=== PATIENT | male | born 1990 | race Two or more races ===

== ENCOUNTER 2023-08-11 19:27 | Inpatient (IN) | payer OTHER ==
[~2023-08-11] VITALS: Ht 172.7 cm; Wt 126.1 kg
[2023-08-11] MEDS ORDERED: hydrALAZINE HCL IV 20 MG VIAL ONE (20:39)
[2023-08-11] MEDS ORDERED: CLONIDINE HCL 0.1 MG TABLET PO ONE (21:00)
[2023-08-11] MEDS ORDERED: hydrALAZINE HCL IV 20 MG VIAL IV ONE (21:00)
[2023-08-11 21:01] LABS: BASOPHILS # (AUTO) 0.1 K/uL (0.0-0.2); BASOPHILS % (AUTO) 0.6 % (0.0-2.0); EOSINOPHILS % (AUTO) 0.1 % (0.0-6.0); HEMATOCRIT 30 % (39-51); HEMOGLOBIN 10.2 g/dL (13.5-17.5); LYMPHOCYTES # (AUTO) 2.1 K/uL (0.8-4.8); LYMPHOCYTES % (AUTO) 13.4 % (20.0-44.0); MEAN CORPUSCULAR HEMOGLOBIN 26 PG (26.0-33.0); MEAN CORPUSCULAR HGB CONC 34 g/dl (31.0-36.0); MEAN CORPUSCULAR VOLUME 76 fL (80-96); MONOCYTES # (AUTO) 0.8 K/uL (0.1-1.30); MONOCYTES % (AUTO) 4.9 % (2.0-12.0); PLATELET COUNT (AUTO) 262 K/uL (150-450); RED BLOOD CELL COUNT(AUTO) 3.99 MIL/uL (4.5-6.0); RED CELL DISTRIBUTION WIDTH 21.2 % (11.5-15.0)
[2023-08-11 21:25] LABS: CARBON DIOXIDE 24 mmol/L (21-32); CHLORIDE 101 mmol/L (98-107); CREATININE 3.6 mg/dL (0.6-1.3); GLUCOSE 98 mg/dL (74-106); SODIUM SERUM 137 mmol/L (136-145); UREA NITROGEN, BLOOD 32 mg/dL (7-18)
[2023-08-11] MEDS ORDERED: LABETALOL HCL IV 100MG VIAL ONE (21:30)
[2023-08-11] MEDS ORDERED: LABETALOL 20 MG/4 ML VIAL IV ONE ×3 (21:30→23:30)
[2023-08-11] MEDS ORDERED: LORAZEPAM INJ 2 MG/ML VIAL IV ONE (23:30)
[2023-08-11] MEDS ORDERED: LORAZEPAM INJ 2 MG/ML VIAL ONE (23:54)
[2023-08-12] VITALS (44 sets, daily range): BP systolic 115–203; BP diastolic 65–122; TEMP 97.6–99.3; O2SAT 96–100
[2023-08-12] MEDS ORDERED: ONDANSETRON HCL/PF 4 MG/2 ML VIAL IVP PRN (00:30)
[2023-08-12] MEDS ORDERED: MAG HYDROX/AL HYDROX/SIMETH 30 ML UDC PO PRN (00:30)
[2023-08-12] MEDS ORDERED: ACETAMINOPHEN 325 MG TABLET PO PRN (00:30)
[2023-08-12] MEDS ORDERED: ZOLPIDEM TARTRATE 5 MG TABLET PO PRN (00:30)
[2023-08-12] MEDS ORDERED: MAGNESIUM HYDROXIDE 30 ML UDC PO PRN (00:30)
[2023-08-12] MEDS ORDERED: Z GUARD REMEDY 4 OZ OINT TP PRN (00:30)
[2023-08-12] MEDS ORDERED: hydrALAZINE HCL IV 20 MG VIAL IV PRN (00:30)
[2023-08-12] MEDS: hydrALAZINE HCL IV 20 MG VIAL IV PRN ×2 (02:42→08:39)
[2023-08-12] MEDS: IV 1/2NS 1000 ML 1,000 ML IV PRN ×2 (02:43→18:19)
[2023-08-12] MEDS ORDERED: hydrALAZINE HCL IV 20 MG VIAL IV ONE (05:00)
[2023-08-12] MEDS ORDERED: ONDANSETRON HCL/PF 4 MG/2 ML VIAL IV PRN (08:30)
[2023-08-12] MEDS ORDERED: LOSA50TA39 PO (08:55)
[2023-08-12] MEDS ORDERED: LOSARTAN/HCTZ 50-12.5MG/ 1 EA TABLET PO SCH (09:00)
[2023-08-12] MEDS ORDERED: NICARDIPINE HCL 50 MG in IV NS 0.9% 230 ML IV PRN (12:00)
[2023-08-12] MEDS ORDERED: NIFEdipine XL (30MG) 30 MG TAB PO SCH (12:00)
[2023-08-12] MEDS: NICARDIPINE IN NACL, ISO-OSM 200 ML IV PRN ×3 (12:26→18:13)
[2023-08-12] MEDS: LABETALOL HCL (100MG) 100 MG TABLET PO SCH ×2 (16:54→21:30)
[2023-08-12] MEDS: NIFEdipine XL (30MG) 30 MG TAB PO SCH ×2 (16:54→17:00)
[2023-08-12] MEDS ORDERED: MINOXIDIL (2.5MG) 2.5 MG TABLET PO SCH (17:00)
[2023-08-12] MEDS ORDERED: NICARDIPINE IN NACL, ISO-OSM 200 ML IV PRN (19:00)
[2023-08-12] MEDS ORDERED: POTASSIUM CHLORIDE 20 MEQ TAB.PRT.SR PO ONE (19:00)
[2023-08-13] VITALS (56 sets, daily range): BP systolic 102–177; BP diastolic 56–124; TEMP 98–99.8; O2SAT 95–100
[2023-08-13 04:48] LABS: BASOPHILS % (AUTO) 0.3 % (0.0-2.0); EOSINOPHILS # (AUTO) 0.1 K/uL (0.0-0.7); EOSINOPHILS % (AUTO) 0.3 % (0.0-6.0); HEMATOCRIT 28 % (39-51); HEMOGLOBIN 9.7 g/dL (13.5-17.5); LYMPHOCYTES # (AUTO) 2.4 K/uL (0.8-4.8); LYMPHOCYTES % (AUTO) 14.3 % (20.0-44.0); MEAN CORPUSCULAR HEMOGLOBIN 26 PG (26.0-33.0); MEAN CORPUSCULAR HGB CONC 35 g/dl (31.0-36.0); MEAN CORPUSCULAR VOLUME 76 fL (80-96); MONOCYTES # (AUTO) 1.2 K/uL (0.1-1.30); MONOCYTES % (AUTO) 6.9 % (2.0-12.0); NEUTROPHILS # (AUTO) 13.4 K/uL (1.8-8.9); NEUTROPHILS % (AUTO) 78.2 % (43.0-81.0); PLATELET COUNT (AUTO) 254 K/uL (150-450); RED BLOOD CELL COUNT(AUTO) 3.69 MIL/uL (4.5-6.0); RED CELL DISTRIBUTION WIDTH 21.5 % (11.5-15.0); WHITE BLOOD COUNT (AUTO) 17.1 K/uL (4.3-11.0)
[2023-08-13 05:18] LABS: ALBUMIN 3.4 g/dL (3.4-5.0); BILIRUBIN,TOTAL 0.9 mg/dL (0.2-1.0); CALCIUM, SERUM 8.8 mg/dL (8.5-10.1); CREATININE 3.5 mg/dL (0.6-1.3); MAGNESIUM 2.2 mg/dL (1.8-2.4); PHOSPHORUS 4.5 mg/dL (2.5-4.9); POTASSIUM 3.1 mmol/L (3.5-5.1); TOTAL PROTEIN, SERUM 7.4 g/dL (6.4-8.2)
[2023-08-13 05:28] LABS: THYROID STIMULATING HORMONE 0.885 uIU/mL (0.358-3.74)
[2023-08-13] MEDS: IV 1/2NS 1000 ML 1,000 ML IV PRN ×2 (08:11→22:19)
[2023-08-13] MEDS: LABETALOL HCL (100MG) 100 MG TABLET PO SCH ×3 (08:12→21:34)
[2023-08-13] MEDS: NIFEdipine XL (30MG) 30 MG TAB PO SCH ×2 (08:12→16:04)
[2023-08-13] MEDS ORDERED: POTASSIUM CHLORIDE 20 MEQ TAB.PRT.SR PO ONE (08:30)
[2023-08-13] MEDS: hydrALAZINE HCL IV 20 MG VIAL IV PRN (14:31)
[2023-08-13] MEDS ORDERED: LABETALOL HCL IV 100MG VIAL IV PRN (18:00)
[2023-08-13] MEDS ORDERED: CLONIDINE HCL 0.1 MG TABLET PO PRN (18:00)
[2023-08-14] VITALS (21 sets, daily range): BP systolic 134–190; BP diastolic 78–115; TEMP 98.5–99.1; O2SAT 95–100
[2023-08-14 08:09] LABS: CORTISOL SERUM 10.4 ug/dL (6.2-19.4); PTH, INTACT 71 pg/mL (15-65)
[2023-08-14] MEDS: NIFEdipine XL (30MG) 30 MG TAB PO SCH ×2 (08:35→16:17)
[2023-08-14] MEDS: LABETALOL HCL (100MG) 100 MG TABLET PO SCH ×2 (08:36→21:39)
[2023-08-14] MEDS: IV 1/2NS 1000 ML 1,000 ML IV PRN (09:32)
[2023-08-14 13:13] LABS: *SPE A/G RATIO 1.2 (0.7-1.7); *SPE ALBUMIN 3.7 g/dL (2.9-4.4); *SPE ALPHA-1-GLOBULIN 0.3 g/dL (0.0-0.4); *SPE ALPHA-2-GLOBULIN 0.6 g/dL (0.4-1.0); *SPE GLOBULIN, TOTAL 3.2 g/dL (2.2-3.9); *SPE M-SPIKE Not Observed g/dL (Not Observed); *SPE PROTEIN TOTAL 6.9 g/dL (6.0-8.5); *SPEGAMMA GLOBULIN 1.4 g/dL (0.4-1.8)
[2023-08-15] VITALS (8 sets, daily range): BP systolic 67–156; BP diastolic 47–108; TEMP 97.6–98.8; O2SAT 97–100
[2023-08-15 08:03] LABS: BASOPHILS # (AUTO) 0.1 K/uL (0.0-0.2); BASOPHILS % (AUTO) 0.9 % (0.0-2.0); EOSINOPHILS # (AUTO) 0.2 K/uL (0.0-0.7); EOSINOPHILS % (AUTO) 2.1 % (0.0-6.0); HEMATOCRIT 30 % (39-51); HEMOGLOBIN 10.3 g/dL (13.5-17.5); LYMPHOCYTES # (AUTO) 2.4 K/uL (0.8-4.8); LYMPHOCYTES % (AUTO) 23.4 % (20.0-44.0); MEAN CORPUSCULAR HEMOGLOBIN 26 PG (26.0-33.0); MEAN CORPUSCULAR HGB CONC 34 g/dl (31.0-36.0); MEAN CORPUSCULAR VOLUME 78 fL (80-96); MONOCYTES # (AUTO) 0.7 K/uL (0.1-1.30); MONOCYTES % (AUTO) 7.1 % (2.0-12.0); NEUTROPHILS # (AUTO) 6.8 K/uL (1.8-8.9); NEUTROPHILS % (AUTO) 66.5 % (43.0-81.0); PLATELET COUNT (AUTO) 299 K/uL (150-450); RED BLOOD CELL COUNT(AUTO) 3.92 MIL/uL (4.5-6.0); RED CELL DISTRIBUTION WIDTH 21.2 % (11.5-15.0); WHITE BLOOD COUNT (AUTO) 10.3 K/uL (4.3-11.0)
[2023-08-15 08:30] LABS: CALCIUM, SERUM 9.1 mg/dL (8.5-10.1); CREATININE 3.7 mg/dL (0.6-1.3); MAGNESIUM 2.4 mg/dL (1.8-2.4); PHOSPHORUS 4.3 mg/dL (2.5-4.9); POTASSIUM 3.4 mmol/L (3.5-5.1)
[2023-08-15] MEDS: NIFEdipine XL (30MG) 30 MG TAB PO SCH ×2 (09:04→18:54)
[2023-08-15] MEDS: LABETALOL HCL (100MG) 100 MG TABLET PO SCH ×2 (09:04→18:24)
[2023-08-15] MEDS ORDERED: POTASSIUM CHLORIDE 20 MEQ TAB.PRT.SR PO ONE (10:00)
[2023-08-15] MEDS ORDERED: LABETALOL HCL (100MG) 100 MG TABLET PO SCH (13:00)
[2023-08-15] MEDS ORDERED: NIFE-35 PO (14:15)
[2023-08-15] MEDS ORDERED: LABE100T15 PO (14:15)
[2023-08-15] MEDS ORDERED: MINO2.5T PO (14:15)
[2023-08-16] VITALS: BP 136/91; TEMP 98.4; O2SAT 100
[2023-08-16 06:27] LABS: BASOPHILS # (AUTO) 0.1 K/uL (0.0-0.2); BASOPHILS % (AUTO) 0.8 % (0.0-2.0); EOSINOPHILS # (AUTO) 0.2 K/uL (0.0-0.7); EOSINOPHILS % (AUTO) 1.4 % (0.0-6.0); HEMATOCRIT 29 % (39-51); HEMOGLOBIN 9.8 g/dL (13.5-17.5); LYMPHOCYTES # (AUTO) 2.4 K/uL (0.8-4.8); LYMPHOCYTES % (AUTO) 19.7 % (20.0-44.0); MEAN CORPUSCULAR HEMOGLOBIN 26 PG (26.0-33.0); MEAN CORPUSCULAR HGB CONC 34 g/dl (31.0-36.0); MEAN CORPUSCULAR VOLUME 76 fL (80-96); MONOCYTES # (AUTO) 0.9 K/uL (0.1-1.30); MONOCYTES % (AUTO) 7.3 % (2.0-12.0); NEUTROPHILS # (AUTO) 8.7 K/uL (1.8-8.9); NEUTROPHILS % (AUTO) 70.8 % (43.0-81.0); PLATELET COUNT (AUTO) 293 K/uL (150-450); RED BLOOD CELL COUNT(AUTO) 3.78 MIL/uL (4.5-6.0); RED CELL DISTRIBUTION WIDTH 20.8 % (11.5-15.0); WHITE BLOOD COUNT (AUTO) 12.3 K/uL (4.3-11.0)
[2023-08-16 07:01] LABS: ALBUMIN 3.4 g/dL (3.4-5.0); BILIRUBIN,TOTAL 0.8 mg/dL (0.2-1.0); CREATININE 3.6 mg/dL (0.6-1.3); MAGNESIUM 2.4 mg/dL (1.8-2.4); PHOSPHORUS 4.7 mg/dL (2.5-4.9); POTASSIUM 3.5 mmol/L (3.5-5.1); TOTAL PROTEIN, SERUM 7.7 g/dL (6.4-8.2)
[2023-08-16 08:00] VITALS: BP 154/105; TEMP 98.6; O2SAT 99
[2023-08-16 09:20] VITALS: BP 149/112
[2023-08-16 09:22] VITALS: BP_SYST 151; BP_SYST 168; BP_DIAS 100
[2023-08-16] MEDS: LABETALOL HCL (100MG) 100 MG TABLET PO SCH (09:22)
[2023-08-16 11:45] VITALS: BP 136/104
[2023-08-16] MEDS: NIFEdipine XL (30MG) 30 MG TAB PO SCH (11:45)
[2023-08-16] MEDS ORDERED: LABE100T5 PO (12:47)
[2023-08-17 01:06] LABS: ALDOSTERONE,LCMS 14 ng/dL (.)
== END 2023-08-16 13:50 | disposition home or self-care (01) | DRG 199 ==
LOC: ER 19:29 → TELE 08-12 00:45 → ICU 08-12 13:45 → TELE 08-14 12:56
PROVIDERS: ADMIT Nurse Practitioner Acute Care; ATTEND Nurse Practitioner Acute Care
PROC: 05H533Z Insertion of Infusion Device into Right Subclavian Vein, Percutaneous Approach (ICD-10-PCS; principal; 2023-08-12)
PROC: B546ZZA Ultrasonography of Right Subclavian Vein, Guidance (ICD-10-PCS; 2023-08-12)
DX: I16.0 Hypertensive urgency (principal); I21.A1 Myocardial infarction type 2; N17.9 Acute kidney failure, unspecified; E46 Unspecified protein-calorie malnutrition; E83.9 Disorder of mineral metabolism, unspecified; D64.9 Anemia, unspecified; D72.829 Elevated white blood cell count, unspecified; E87.6 Hypokalemia; I12.9 Hypertensive chronic kidney disease with stage 1 through stage 4 chronic kidney disease, or unspecified chronic kidney disease; E66.01 Morbid (severe) obesity due to excess calories; Z68.41 Body mass index [BMI] 40.0-44.9, adult; F41.9 Anxiety disorder, unspecified; M89.8X9 Other specified disorders of bone, unspecified site; N18.4 Chronic kidney disease, stage 4 (severe); E66.9 Obesity, unspecified; N18.9 Chronic kidney disease, unspecified; I70.1 Atherosclerosis of renal artery; Z91.199 Patient's noncompliance with other medical treatment and regimen due to unspecified reason
CPT/HCPCS: 36410; 36415; 70450-TC; 71045-TC; 76770-TC; 80048-TC; 80053-TC; 80061-TC; 82088; 82533; 82550-TC; 83735-TC; 83835; 83970; 84100-TC; 84155; 84165; 84244; 84443-TC; 84484-TC; 85025-TC; 93307-TC; A4223; G0378; J0360; J2060; J2405; J3490; J7050

== ENCOUNTER 2023-08-19 14:29 | Emergency (ER) | payer OTHER ==
[~2023-08-19] VITALS: Ht 170.2 cm; Wt 122.5 kg
[~2023-08-19 14:29] MED LIST: LABE100T5 PO; MINO2.5T PO; NIFE-35 PO
[2023-08-19] MEDS ORDERED: ACETAMINOPHEN ES 500 MG TABLET ONE (15:55)
[2023-08-19] MEDS ORDERED: LABETALOL HCL (100MG) 100 MG TABLET ONE (15:56)
[2023-08-19] MEDS: IV NS 0.9% 1,000 ML BAG IV ONE (16:07)
[2023-08-19 16:08] LABS: BASOPHILS # (AUTO) 0.1 K/uL (0.0-0.2); BASOPHILS % (AUTO) 1.1 % (0.0-2.0); EOSINOPHILS # (AUTO) 0.2 K/uL (0.0-0.7); HEMATOCRIT 31 % (39-51); HEMOGLOBIN 10.6 g/dL (13.5-17.5); LYMPHOCYTES # (AUTO) 1.5 K/uL (0.8-4.8); LYMPHOCYTES % (AUTO) 12.6 % (20.0-44.0); MEAN CORPUSCULAR HEMOGLOBIN 25 PG (26.0-33.0); MEAN CORPUSCULAR HGB CONC 34 g/dl (31.0-36.0); MEAN CORPUSCULAR VOLUME 75 fL (80-96); MONOCYTES # (AUTO) 0.7 K/uL (0.1-1.30); MONOCYTES % (AUTO) 5.8 % (2.0-12.0); NEUTROPHILS # (AUTO) 9.3 K/uL (1.8-8.9); NEUTROPHILS % (AUTO) 78.5 % (43.0-81.0); PLATELET COUNT (AUTO) 353 K/uL (150-450); RED BLOOD CELL COUNT(AUTO) 4.17 MIL/uL (4.5-6.0); RED CELL DISTRIBUTION WIDTH 20.9 % (11.5-15.0); WHITE BLOOD COUNT (AUTO) 11.8 K/uL (4.3-11.0)
[2023-08-19] MEDS: LABETALOL HCL (100MG) 100 MG TABLET PO ONE (16:08)
[2023-08-19] MEDS: ACETAMINOPHEN ES 500 MG TABLET PO ONE (16:09)
[2023-08-19 16:22] LABS: BILIRUBIN,DIRECT 0.2 mg/dL (0.0-0.2); CALCIUM, SERUM 9.7 mg/dL (8.5-10.1); TOTAL PROTEIN, SERUM 8.6 g/dL (6.4-8.2)
[2023-08-19 18:38] VITALS: BP 175/117; TEMP 98.2; O2SAT 100
[2023-08-19 18:38] LABS: ANISOCYTOSIS 1+; EOSINOPHILS % (MANUAL) 2 % (0-4); LYMPHOCYTES % (MANUAL) 15 % (16-48); MONOCYTES % (MANUAL) 2 % (0-11.0); NEUTROPHILS % (MANUAL) 81 (42-76); OVALOCYTES 1+; PLATELET ESTIMATE ADEQUATE
== END 2023-08-19 18:39 | disposition home or self-care (01) ==
LOC: ER 14:31
DX: I12.9 Hypertensive chronic kidney disease with stage 1 through stage 4 chronic kidney disease, or unspecified chronic kidney disease (principal); N18.9 Chronic kidney disease, unspecified; R51.9 Headache, unspecified
CPT/HCPCS: 99285; 96360; 85025; 80048; 80076; 36415; 85007; J7030

== ENCOUNTER 2024-01-14 09:18 | Emergency (ER) | payer OTHER ==
[~2024-01-14] VITALS: Ht 172.7 cm; Wt 116.6 kg
[2024-01-14 10:33] LABS: CALCIUM, SERUM 8.9 mg/dL (8.5-10.1); CREATININE 6.1 mg/dL (0.6-1.3); POTASSIUM 3.1 mmol/L (3.5-5.1)
[2024-01-14 10:35] LABS: BASOPHILS # (AUTO) 0.1 K/uL (0.0-0.2); BASOPHILS % (AUTO) 0.9 % (0.0-2.0); EOSINOPHILS # (AUTO) 0.1 K/uL (0.0-0.7); EOSINOPHILS % (AUTO) 0.8 % (0.0-6.0); LYMPHOCYTES # (AUTO) 2.1 K/uL (0.8-4.8); LYMPHOCYTES % (AUTO) 18.8 % (20.0-44.0); MEAN CORPUSCULAR HEMOGLOBIN 27 PG (26.0-33.0); MEAN CORPUSCULAR HGB CONC 36 g/dl (31.0-36.0); MEAN CORPUSCULAR VOLUME 75 fL (80-96); MONOCYTES # (AUTO) 0.8 K/uL (0.1-1.30); MONOCYTES % (AUTO) 7.4 % (2.0-12.0); NEUTROPHILS # (AUTO) 7.9 K/uL (1.8-8.9); NEUTROPHILS % (AUTO) 72.1 % (43.0-81.0); PLATELET COUNT (AUTO) 258 K/uL (150-450); RED BLOOD CELL COUNT(AUTO) 2.03 MIL/uL (4.5-6.0); RED CELL DISTRIBUTION WIDTH 22.1 % (11.5-15.0)
[2024-01-14 10:44] LABS: HEMATOCRIT 15 % (39-51); HEMOGLOBIN 5.5 g/dL (13.5-17.5)
[2024-01-14 10:49] LABS: INR 0.92 (0.91-1.10); PROTHROMBIN TIME 9.5 SECS (9.2-11.1)
[2024-01-14] MEDS ORDERED: SEVE800T8 PO (11:16)
[2024-01-14] MEDS ORDERED: LABE200T5 PO (11:16)
[2024-01-14] MEDS ORDERED: ERGO500093 PO (11:16)
[2024-01-14 12:36] LABS: ANISOCYTOSIS 1+; BASOPHILS % (MANUAL) 0 % (0.0-2.0); EOSINOPHILS % (MANUAL) 0 % (0-4); HYPOCHROMASIA 1+; LYMPHOCYTES % (MANUAL) 15 % (16-48); MONOCYTES % (MANUAL) 9 % (0-11.0); NEUTROPHILS % (MANUAL) 76 (42-76); OVALOCYTES 1+; PLATELET ESTIMATE ADEQUATE
[2024-01-14] MEDS ORDERED: LABETALOL HCL IV 100MG VIAL ONE (13:01)
[2024-01-14] MEDS: LABETALOL 20 MG/4 ML VIAL IV ONE (13:03)
[2024-01-14 16:06] VITALS: BP 166/109; TEMP 98.6; O2SAT 18
== END 2024-01-14 16:09 | disposition home or self-care (01) ==
LOC: ER 09:18
DX: I12.0 Hypertensive chronic kidney disease with stage 5 chronic kidney disease or end stage renal disease (principal); N18.6 End stage renal disease; D63.1 Anemia in chronic kidney disease; Z99.2 Dependence on renal dialysis; I16.0 Hypertensive urgency
CPT/HCPCS: 99285; 96374; 93005; 85025; 80048; 36415; 85730; 86850; 85007; J3490 ×2